=== PATIENT | female | born 1955 | race Caucasian/White ===

== ENCOUNTER 2024-08-23 07:14 | Emergency (ER) | payer MEDICARE, OTHER, SELFPAY ==
[2024-08-23 07:16] VITALS: BP 155/92
--- NOTE | 2024-08-23 08:17 | ED.GENMED ---
History of Present Illness
<Jesus Sanchez MD, Resident - Last Filed: 08/23/24 11:32>
General
Chief Complaint: Fainting/Passed Out
Source: patient and family
Time Seen by Provider: 08/23/24 07:50
Travel History
Have you traveled to any high risk areas for coronavirus over the past 14 days?: No
Have you had any contact with someone who has COVID-19?: No
Do you have any symptoms of coronavirus? Fever > 100 degrees, chills, cough, shortness of breath, sore throat, loss of taste or smell, muscle aches, or headache?: No
History of Present Illness
History of Present Illness:
Arabella Murray, age 69, felt acutely nauseous and had a syncope yesterday in the evening. She hit her head and injured her left wrist during the fall. Witnessed by her . She woke up a few seconds later, and has not had any symptoms since
then, except for persistent left wrist pain. Denies any recent illnesses or changes to her health. Denies fatigue, headache, lightheadedness, memory or balancing issues, nausea, vomiting, chest pain/tightness, palpitations, shortness of breath, or
abdominal symptoms. Left wrist is significantly tender and range of motion is considerably restricted.
Past History
<Jesus Sanchez MD, Resident - Last Filed: 08/23/24 11:32>
Past History
ED Past Medical History: Other (asthma; type II diabetes mellitus; left hemidiaphragm paralysis)
ED Past Surgical History: Other (appendectomy; )
Social History
Tobacco: Non-smoker
Alcohol: None
Drug: None
Review of Systems
<Jesus Sanchez MD, Resident - Last Filed: 08/23/24 11:32>
Review of Systems
All Other Systems: Not applicable
Constitutional: Reports no symptoms
EENT: Reports no symptoms
Respiratory: Reports no symptoms
Cardiac: Reports no symptoms
ABD/GI: Reports no symptoms
: Reports no symptoms
Musculoskeletal: Reports other (left wrist pain)
Skin: Reports no symptoms
Neurological: Reports no symptoms
Endocrine: Reports no symptoms
Hematologic/Lymphatic: Reports no symptoms
Psychiatric: Reports no symptoms
Phy Exam
<Jesus Sanchez MD, Resident - Last Filed: 08/23/24 11:32>
General Physical Exam
General Presentation: well appearing and no apparent distress
General Skin: warm and dry
General Habitus: normal
General Mental: alert
General Hydration: appears well hydrated
ENT Exam
ENT Exam: EOMI, pharynx normal, neck supple and normocephalic
Eye Exam
Eye Exam: PERRL, cornea clear and conjunctiva normal
Cardiovascular Exam
Cardiovascular Exam: regular rate/rhythm, no edema, no murmur and normal peripheral pulses
Pulmonary Exam
Pulmonary Exam: lungs clear, no respiratory distress, no rales, no crackles, no rhonchi, no stridor, no wheezing and no cough
Gastrointestinal Exam
Gastrointestinal Exam: normal bowel sounds, non tender, soft, no organomegaly, no pulsatile mass and non distended
Neurological Exam
Neurological Exam: alert, oriented x3, no motor deficits and speech normal
Musculoskeletal Exam
Musculoskeletal Exam: other (left wrist swelling; tenderness; restricted range of motion)
Skin Exam
Skin Exam: normal color, warm/dry, no rash and no petechia
Psychiatric Exam
Psychiatric Exam: normal mood/affect
Course
<Jesus Sanchez MD, Resident - Last Filed: 08/23/24 11:32>
Orders/Labs/Results
Orders:
Orders
08/23/24 08:14
Electrocardiogram (*1) Urgent
Reason for Study: Syncope
EKG- Treatment ONCE
Wrist, Left 3 Views CR [CR Wrist - Left Min 3 Views] Urgent
Comment:
Reason For Exam: pain and restricted ROM
08/23/24 08:26
Acetaminophen [Tylenol] 1,000 mg PO NOW STA
08/23/24 08:45
Basic Metabolic Panel Urgent
Complete Blood Count/No Diff Urgent
08/23/24 08:50
Troponin I Urgent
08/23/24 11:17
Splints/Slings/Crut- Treatment ONCE
Abnormal Lab Results
08/23/24
08:45
WBC 11.9 H 10^3/uL
(4.8-10.8)
Chloride 96 L mmol/L
(98-107)
Glucose 108 H mg/dl
(70-99)
08/23/24 08:45
08/23/24 08:45
Vital Signs
Initial and Last Documented VS:
Initial Vital Signs
Temp Pulse Resp BP Pulse Ox
97.9 F 72 18 155/92 96
08/23/24 07:16 08/23/24 07:16 08/23/24 07:16 08/23/24 07:16 08/23/24 07:16
Last Documented Vital Signs
Temp Pulse Resp BP Pulse Ox
97.9 F 78 17 155/92 98
08/23/24 07:16 08/23/24 08:45 08/23/24 08:45 08/23/24 07:16 08/23/24 08:45
<Arash Samano MD - Last Filed: 08/23/24 11:20>
Orders/Labs/Results
Orders:
Orders
08/23/24 08:14
Electrocardiogram (*1) Urgent
Reason for Study: Syncope
EKG- Treatment ONCE
Wrist, Left 3 Views CR [CR Wrist - Left Min 3 Views] Urgent
Comment:
Reason For Exam: pain and restricted ROM
08/23/24 08:26
Acetaminophen [Tylenol] 1,000 mg PO NOW STA
08/23/24 08:45
Basic Metabolic Panel Urgent
Complete Blood Count/No Diff Urgent
08/23/24 08:50
Troponin I Urgent
08/23/24 11:17
Splints/Slings/Crut- Treatment ONCE
Abnormal Lab Results
08/23/24
08:45
WBC 11.9 H 10^3/uL
(4.8-10.8)
Chloride 96 L mmol/L
(98-107)
Glucose 108 H mg/dl
(70-99)
08/23/24 08:45
08/23/24 08:45
Vital Signs
Initial and Last Documented VS:
Initial Vital Signs
Temp Pulse Resp BP Pulse Ox
97.9 F 72 18 155/92 96
08/23/24 07:16 08/23/24 07:16 08/23/24 07:16 08/23/24 07:16 08/23/24 07:16
Last Documented Vital Signs
Temp Pulse Resp BP Pulse Ox
97.9 F 78 17 155/92 98
08/23/24 07:16 08/23/24 08:45 08/23/24 08:45 08/23/24 07:16 08/23/24 08:45
<Jesus Sanchez MD, Resident - Last Filed: 08/23/24 11:32>
*Critical Care Note
Total Time (30-74mins, 75-104mins- exclusive of procedures): Not Applicable
ED Attending Note
<Jesus Sanchez MD, Resident - Last Filed: 08/23/24 11:32>
-
Portions of this chart may have been created with voice recognition software.� Occasional wrong word or��sound alike� substitutions may have occurred due to the inherent limitations of voice recognition software.
<Arash Samano MD - Last Filed: 08/23/24 11:20>
ED Attending Note
Patient seen and examined by attending physician: Yes
I performed a history and physical exam of patient and discussed management with resident, I reviewed resident's note and agree with documented findings and plan of care.: Yes
ED Attending Note:
I have seen and evaluated the patient with a [id number] encounter. I have spoken to the resident and involved in the medical history, the physical exam, medical decision making.
Evaluation and management service: agree unless noted differently below.
Results interpretation: agree unless noted differently below.
Focused HPI: 69-year-old female with a past medical history of diabetes, asthma who presents to the emergency room with her for evaluation of left wrist pain after syncopal event yesterday. Patient reports that she has had diarrheal illness
for the past few days. She says that she took some Imodium yesterday. She says that in the evening she started to feel mildly nauseated and then began to feel lightheaded and passed out. She says she landed on her left wrist and injured the
wrist. She did have minor head trauma. She was able to get back up on her own no other serious injuries from fall. She says she did not have any chest pain, palpitations, shortness of breath and has not had the symptoms since. She denies any
headache, neck pain, back pain. She has left wrist pain but denies any pain in the elbow or shoulder and denies any pain in the right upper extremity or in the bilateral lower extremities. She is not on any blood thinners.
Physical exam: Awake alert not in distress. Hypertensive otherwise normal vitals. GCS 15. Head normocephalic atraumatic. No cervical spine tenderness. No signs of trauma to the back or flank and no tenderness in the thoracic or lumbar spine.
She has no cardiac rubs gallops or murmurs. Lungs clear to auscultation bilaterally. Abdomen soft nontender to deep palpation. On exam of her left wrist she has circumferential swelling and some dorsal ecchymosis, tenderness over the distal
radius and ulna dorsally, no snuffbox tenderness, pain on flexion extension, supination and pronation but is able to move it through full range of motion; no tenderness of the left elbow or shoulder and good range of motion, rest of extremities
atraumatic; good pulses in all EXTR specifically strong left radial pulse. Motor intact radial, median, ulnar nerve distribution of left upper extremity.
Medical Decision Makin-year-old female presents to the ER for evaluation of wrist pain, had syncopal event yesterday in the setting of recent diarrheal illness. Hypertensive otherwise vitals. Physical exam as above. Will check labs including
CBC and CMP. Check EKG and troponin given nausea preceding syncopal event although no chest pain. Will check x-ray of the left wrist. Considered CT head but patient 24 hours removed from the event with no headache, no signs of head trauma and GCS
15, minor mechanism (only had minor head trauma from ground-level fall) and she is not on blood thinners. In my judgment no indication for emergent neuroimaging at this point in time. Will provide some IV fluids. Suspect syncope may be related to
hypovolemia with recent GI symptoms--consistent with mild viral illness.
Discharge Plan
Departure
Patient Disposition: Home (Routine Discharge)
Date of Disposition: 08/23/24
Time of Disposition: 11:18
Patient with high blood pressure during this ER visit?: Yes
Discharge Problem:
Fracture of triquetrum, Syncope
Instructions: Syncope (fainting), Wrist fracture
Referrals:
Davis German MD [Active] - Call in 1-3 days for appt
Juventino Saldana MD [Family Provider] - Follow up in 5-7 days
Activity Restrictions/Additional Instructions:
Thank you for visiting the Emergency Department at [facility].
1. Please schedule a follow up appointment as directed. Call first thing tomorrow morning to make an appointment.
2. If indicated, please take your medications as instructed and indicated on discharge paperwork.
3. If any of your symptoms do not improve, or persist, or become more severe within 6-12 hours, please return to the emergency department for further care.
4. Please return to the emergency department if you develop a headache, neck pain/stiffness, fever greater than 100.4F, chest pain, shortness of breath, persistent nausea, vomiting, slurred speech, difficulty walking, numbness/tingling, weakness,
signs of infection or any other symptoms that are worrisome to you.
Please call [phone] if you have any questions.
Interventions
Interventions:
*Risk Screen - Suicide Last Done: 08/23/24 07:57
*General Assessment Last Done: 08/23/24 08:46
*Neglect/Abuse Screening Last Done: 08/23/24 07:57
ED- Fall Risk Assessment Last Done: 08/23/24 07:57
*ED COVID-19 Vaccine History Last Done: 08/23/24 07:57
ED- Cardiac Assessment Last Done: 08/23/24 08:49
ED- Neurological Assessment Last Done: 08/23/24 08:46
Discharge Date and Time
Print Language: [id number]
[2024-08-23 08:38] VITALS: BMI 36.3
[2024-08-23] MEDS: TYLENOL 1000 MG PO (08:38)
[2024-08-23 09:05] LABS: Hematocrit 39.2 % (37.0-47.0); Hemoglobin 13.1 g/dL (12.0-16.0); Mean Corp Hgb Conc. 33.4 g/dL (33.0-37.0); Mean Corpuscular Volume 92.7 fL (81.0-99.0); Mean Platelet Volume 8.6 fL (7.4-10.4); Platelet Count 311 10^3/uL (130-400); Red Blood Cell Count 4.23 10^6/uL (4.20-5.40); Red Cell Dist. Width 12.2 % (11.5-14.5); White Blood Cell Count 11.9 10^3/uL (4.8-10.8)
[2024-08-23 09:24] LABS: Blood Urea Nitrogen 13 mg/dl (7-17); Calcium 9.3 mg/dl (8.4-10.2); Carbon Dioxide 30 mmol/L (22-30); Chloride 96 mmol/L (98-107); Estimated Creatinine Clearance 93 ml/min; Glucose 108 mg/dl (70-99); Potassium 4.3 mmol/L (3.5-5.1); Sodium 135 mmol/L (135-145); eGFR > 60.00
[2024-08-23 09:31] LABS: Troponin I < 0.012 ng/ml
== END 2024-08-23 11:37 | disposition home or self-care (01) ==
LOC: EMR 07:14
PROVIDERS: Student in an Organized Health Care Education/Training Program; EMERGENCY PHYSICIAN Emergency Medicine; FAMILY PHYSICIAN Internal Medicine
DX: S62.112A Displaced fracture of triquetrum [cuneiform] bone, left wrist, initial encounter for closed fracture (principal); R55 Syncope and collapse; W19.XXXA Unspecified fall, initial encounter; E11.9 Type 2 diabetes mellitus without complications; Z90.49 Acquired absence of other specified parts of digestive tract
CPT/HCPCS: 99283; 29125; 73110; 80048; 84484; 85027; 93005